=== PATIENT | female | born 1985 | race Hispanic/Latino ===

== ENCOUNTER 2018-09-10 20:11 | Emergency (ER) | payer MEDICAID ==
--- NOTE | 2018-09-10 20:56 | Emergency Department Report ---
Chief Complaint: Medical Clearance Stated Complaint: WITHDRAWALS/MED REFILL Time Seen by Provider: 09/10/18 20:50 - HPI History of Present Illness: Pt presents to the ED for prescription refill states she last had clonazepam on 09/07 pt states she has been taking the medication for the last 10 years, she states the longest she has been without it is approx 3 days pt states she needs a refill of clonazepam 2 mg TID which she received from her psychiatrist which pt states is now "in nursing home" she claims that she feels like she is having "withdrawals" she is experiencing tremors of the hands, nausea, abdominal cramping she states these are the typical sx she experiences when she has not had the medication no emesis, no CP, no SOB initial triage with tachycardia, repeat HR in the MSE is normal with HR in the 80s MSE complete MSE screening note: Focused history and physical exam performed. ED Disposition for MSE Condition: Stable
--- NOTE | 2018-09-10 21:56 | Emergency Department Report ---
ED Recheck HPI - General Chief Complaint: Medical Clearance Stated Complaint: WITHDRAWALS/MED REFILL Time Seen by Provider: 09/10/18 20:50 Source: patient Mode of arrival: Ambulatory Limitations: No Limitations - History of Present Illness MD Complaint: medication refill request (Clonazepam) Returns Today for: request for prescription Context: ran out of medication Associated Symptoms: other ("withdrawal") - Related Data Home Medications Medication Instructions Recorded Confirmed Last Taken PARoxetine [Paxil] 40 mg PO BID 09/10/18 09/10/18 Unknown Prazosin [Minipress] 1 mg PO DAILY 09/10/18 09/10/18 Unknown QUEtiapine [SEROquel] 25 mg PO BID 09/10/18 09/10/18 Unknown buPROPion SR [Wellbutrin Sr] 400 mg PO QAM 09/10/18 09/10/18 Unknown clonazePAM [KlonoPIN] 2 mg PO TID PRN 09/10/18 09/10/18 Unknown Previous Rx's Medication Instructions Recorded Last Taken Type clonazePAM [Clonazepam] 2 mg PO TID PRN #20 tablet 09/10/18 Unknown Rx Allergies Allergy/AdvReac Type Severity Reaction Status Date / Time alcohol Allergy Unknown Verified 09/10/18 20:16 ED Review of Systems ROS: Stated complaint: WITHDRAWALS/MED REFILL Other details as noted in HPI Comment: All other systems reviewed and negative Psychiatric: anxiety. denies: homicidal thoughts, suicidal thoughts ED Past Medical Hx - Past Medical History Hx Psychiatric Treatment: Yes (depression, PTSD,bipolar) - Surgical History Past Surgical History?: No Additional Surgical History: x2 - Social History Smoking Status: Never Smoker Substance Use Type: None - Medications Home Medications: Home Medications Medication Instructions Recorded Confirmed Last Taken Type PARoxetine [Paxil] 40 mg PO BID 09/10/18 09/10/18 Unknown History Prazosin [Minipress] 1 mg PO DAILY 09/10/18 09/10/18 Unknown History QUEtiapine [SEROquel] 25 mg PO BID 09/10/18 09/10/18 Unknown History buPROPion SR [Wellbutrin Sr] 400 mg PO QAM 09/10/18 09/10/18 Unknown History clonazePAM [Clonazepam] 2 mg PO TID PRN #20 tablet 09/10/18 Unknown Rx clonazePAM [KlonoPIN] 2 mg PO TID PRN 09/10/18 09/10/18 Unknown History ED Physical Exam - General Limitations: No Limitations General appearance: alert, in no apparent distress, anxious - Head Head exam: Present: atraumatic, normocephalic - Eye Eye exam: Present: normal appearance - ENT ENT exam: Present: mucous membranes moist - Neck Neck exam: Present: normal inspection - Respiratory Respiratory exam: Present: normal lung sounds bilaterally. Absent: respiratory distress - Cardiovascular Cardiovascular Exam: Present: regular rate, normal rhythm - GI/Abdominal GI/Abdominal exam: Absent: distended - Extremities Exam Extremities exam: Present: normal inspection - Neurological Exam Neurological exam: Present: alert, oriented X3 - Psychiatric Psychiatric exam: Present: normal affect, normal mood, anxious - Skin Skin exam: Present: warm, dry, intact, normal color ED Course Vital Signs 09/10/18 09/10/18 20:51 22:00 Temperature 98.2 F Pulse Rate 98 H 94 H Respiratory 18 18 Rate Blood Pressure 148/93 Blood Pressure 117/81 [Right] O2 Sat by Pulse 99 96 Oximetry Critical care attestation.: If time is entered above; I have spent that time in minutes in the direct care of this critically ill patient, excluding procedure time. ED Disposition Clinical Impression: Medication refill Disposition: DC-01 TO HOME OR SELFCARE Is pt being admited?: No Condition: Stable Instructions: Anxiety (ED) Prescriptions: clonazePAM [Clonazepam] 2 mg PO TID PRN #20 tablet PRN Reason: Anxiety Referrals: PRIMARY CARE, [Referring] - 3-5 Days Time of Disposition: 21:54
== END 2018-09-10 22:15 | disposition home or self-care (01) ==
LOC: ED 20:11
CPT/HCPCS: 99282